=== PATIENT | female | born 2000 | race Caucasian/White ===

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

== ENCOUNTER 2021-01-29 21:59 | Emergency (ER) | payer OTHER ==
[2021-01-29] MEDS ORDERED: ZOFRAN4 MG PO (22:43)
== END 2021-01-29 22:46 | disposition home or self-care (01) ==
LOC: ED 21:59
DX: R11.0 Nausea (principal); Z79.899 Other long term (current) drug therapy

== ENCOUNTER 2021-03-19 10:34 | Emergency (ER) | payer OTHER ==
[~2021-03-19] VITALS: Wt 68.0 kg
[~2021-03-19 10:34] MED LIST changes: +ZOFRAN4 MG PO
[2021-03-19] MEDS ORDERED: ZYRTEC10 M2 PO (10:59)
[2021-03-19] MEDS ORDERED: FLONASE ALLERG9.9 ML NAS (11:08)
== END 2021-03-19 11:13 | disposition home or self-care (01) ==
LOC: ED 10:34
DX: J06.9 Acute upper respiratory infection, unspecified (principal); Z79.899 Other long term (current) drug therapy

== ENCOUNTER → 2021-07-20 | Outpatient (CLI) | payer OTHER ==
[~2021-07-20] MED LIST changes: +FLONASE ALLERG9.9 ML NAS; +ZYRTEC10 M2 PO
== END | disposition home or self-care (01) ==
LOC: US 14:49
PROVIDERS: ATTEND Nurse Practitioner Women's Health
DX: N31.9 Neuromuscular dysfunction of bladder, unspecified (principal)

== ENCOUNTER 2021-07-24 20:49 | Emergency (ER) | payer OTHER ==
[~2021-07-24] VITALS: Ht 162.5 cm; Wt 72.6 kg
== END 2021-07-24 22:37 | disposition left against medical advice (07) ==
LOC: ED 20:49
DX: R10.9 Unspecified abdominal pain (principal); R31.9 Hematuria, unspecified; Z53.21 Procedure and treatment not carried out due to patient leaving prior to being seen by health care provider

== ENCOUNTER → 2021-11-07 | Outpatient (CLI) | payer OTHER | END | disposition home or self-care (01) | LOC: RAD 09:08 | PROVIDERS: ATTEND Nurse Practitioner Family | DX: R05.9 Cough, unspecified (principal); R06.02 Shortness of breath; R06.2 Wheezing ==

== ENCOUNTER 2021-11-28 07:35 | Emergency (ER) | payer OTHER ==
[~2021-11-28] VITALS: Ht 160 cm; Wt 81.6 kg
[2021-11-28 08:12] LABS: BASO % 0.3 % (0.0-1.0); EOS # 0.1 10*3/uL (0.0-0.4); EOS % 1.5 % (1.0-4.0); HEMATOCRIT 43.2 % (37.0-47.0); LYMPH # 2.9 10*3/uL (1.3-4.4); LYMPH % 44.6 % (27.0-41.0); MEAN CORPUSCULAR HGB 28.3 pg (27.0-31.0); MEAN CORPUSCULAR HGB CONC 34.5 g/dl (33.0-37.0); MEAN PLATELET VOLUME 10.5 fl (9.6-12.3); MONO # 0.4 10*3/uL (0.1-1.0); MONO % 6.5 % (3.0-9.0); NEUT # 3.1 10*3/uL (2.3-7.9); NEUT % 46.9 % (47.0-73.0); PLATELET COUNT AUTOMATED 221 10*3/uL (130-400); RED BLOOD COUNT 5.27 10*6/uL (4.10-5.10); RED CELL DISTRI WIDTH 12.6 % (0-14.5); WHITE BLOOD COUNT 6.5 10*3/uL (4.8-10.8)
[2021-11-28 08:27] LABS: ACT PARTIAL THROMBO TIME 28.2 SECONDS (20.0-32.1)
[2021-11-28 08:28] LABS: ALKALINE PHOSPHATASE 104 U/L (45-117); BUN 17 mg/dl (7-24); CHLORIDE 108 mmol/L (98-107); CREATININE 0.81 mg/dL (0.55-1.02); POTASSIUM 3.8 mmol/L (3.5-5.1); SGOT/AST 27 IU/L (3-35); SGPT/ALT 44 U/L (12-78); SODIUM 140 mmol/L (136-145); TOTAL PROTEIN 8.1 gm/dL (6.4-8.2)
[2021-11-28] MEDS ORDERED: NAPROXEN250 MG PO (08:52)
[2021-11-28] MEDS ORDERED: TYLENOL325 M1 PO (08:52)
== END 2021-11-28 08:53 | disposition home or self-care (01) ==
LOC: ED 07:35
PROVIDERS: Emergency Medicine
DX: R07.89 Other chest pain (principal); Z79.899 Other long term (current) drug therapy

== ENCOUNTER 2022-01-23 07:01 | Emergency (ER) | payer OTHER ==
[~2022-01-23] VITALS: Wt 86.2 kg
[~2022-01-23 07:01] MED LIST changes: +NAPROXEN250 MG PO; +TYLENOL325 M1 PO
[2022-01-23 08:21] LABS: BASO % 0.3 % (0.0-1.0); EOS # 0.1 10*3/uL (0.0-0.4); EOS % 0.5 % (1.0-4.0); HEMATOCRIT 40.5 % (37.0-47.0); LYMPH # 3.5 10*3/uL (1.3-4.4); MEAN CELL VOLUME 82.5 fl (81.0-99.0); MEAN CORPUSCULAR HGB 28.7 pg (27.0-31.0); MEAN CORPUSCULAR HGB CONC 34.8 g/dl (33.0-37.0); MEAN PLATELET VOLUME 10.2 fl (9.6-12.3); MONO # 0.6 10*3/uL (0.1-1.0); MONO % 6.9 % (3.0-9.0); NEUT % 54.1 % (47.0-73.0); PLATELET COUNT AUTOMATED 226 10*3/uL (130-400); RED BLOOD COUNT 4.91 10*6/uL (4.10-5.10); RED CELL DISTRI WIDTH 12.7 % (0-14.5); WHITE BLOOD COUNT 9.3 10*3/uL (4.8-10.8)
[2022-01-23 08:37] LABS: ALKALINE PHOSPHATASE 83 U/L (45-117); BUN 14 mg/dl (7-24); CHLORIDE 108 mmol/L (98-107); CREATININE 0.73 mg/dL (0.55-1.02); LIPASE 83 U/L (73-393); POTASSIUM 4.2 mmol/L (3.5-5.1); SGOT/AST 16 IU/L (3-35); SGPT/ALT 34 U/L (12-78); SODIUM 138 mmol/L (136-145); TOTAL PROTEIN 7.7 gm/dL (6.4-8.2)
[2022-01-23 08:55] LABS: BILIRUBIN Negative (Negative); BLOOD Negative (Negative); CLARITY Clear (Clear); COLOR Yellow (Yellow); GLUCOSE Negative (Negative); KETONE Negative (Negative); LEUKO ESTERASE 1+ (Negative); NITRITE Negative (Negative); PH 5.5 (4.5-8.0); UROBILINOGEN 0.2 E.U./dl (0.0-1.0)
[2022-01-23 09:13] LABS: BACTERIA 3+
[2022-01-23] MEDS ORDERED: IBU800 M2 PO (13:59)
== END 2022-01-23 14:14 | disposition home or self-care (01) ==
LOC: ED 07:01
PROVIDERS: Emergency Medicine
DX: R10.31 Right lower quadrant pain (principal); R10.32 Left lower quadrant pain; R10.11 Right upper quadrant pain; R10.12 Left upper quadrant pain

== ENCOUNTER 2022-02-05 21:51 | Emergency (ER) | payer OTHER ==
[~2022-02-05] VITALS: Ht 160 cm; Wt 81.6 kg
[~2022-02-05 21:51] MED LIST changes: +IBU800 M2 PO
== END 2022-02-06 01:13 | disposition home or self-care (01) ==
LOC: ED 21:51
DX: R10.31 Right lower quadrant pain (principal); R10.2 Pelvic and perineal pain

== ENCOUNTER 2022-12-01 00:12 | Emergency (ER) | payer BC, MEDICAID ==
[~2022-12-01] VITALS: Ht 162.5 cm; Wt 92.1 kg
[2022-12-01 00:40] LABS: BASO % 0.1 % (0.0-1.0); EOS % 0.5 % (1.0-4.0); LYMPH # 1.7 10*3/uL (1.3-4.4); LYMPH % 19.8 % (27.0-41.0); MEAN CELL VOLUME 84.2 fl (81.0-99.0); MEAN CORPUSCULAR HGB CONC 34.4 g/dl (33.0-37.0); MEAN PLATELET VOLUME 10.4 fl (9.6-12.3); MONO # 0.5 10*3/uL (0.1-1.0); MONO % 6.2 % (3.0-9.0); NEUT # 6.1 10*3/uL (2.3-7.9); NEUT % 73.2 % (47.0-73.0); PLATELET COUNT AUTOMATED 188 10*3/uL (130-400); RED BLOOD COUNT 4.04 10*6/uL (4.10-5.10); RED CELL DISTRI WIDTH 12.1 % (0-14.5); WHITE BLOOD COUNT 8.3 10*3/uL (4.8-10.8)
[2022-12-01 01:08] LABS: ALKALINE PHOSPHATASE 116 U/L (46-116); BUN 7 mg/dl (9-23); CHLORIDE 106 mmol/L (98-107); POTASSIUM 3.7 mmol/L (3.4-5.1); SGPT/ALT 10 U/L (10-49); TOTAL PROTEIN 6.5 gm/dL (6.0-8.0)
[2022-12-01 01:15] LABS: BILIRUBIN Negative (Negative); BLOOD Negative (Negative); CLARITY Cloudy (Clear); COLOR Yellow (Yellow); GLUCOSE Negative (Negative); KETONE Negative (Negative); LEUKO ESTERASE Trace (Negative); NITRITE Negative (Negative); PH 6.5 (4.5-8.0); SPECIFIC GRAVITY 1.015 (1.001-1.030); UROBILINOGEN 0.2 E.U./dl (0.0-1.0)
[2022-12-01 01:49] LABS: BACTERIA 1+
== END 2022-12-01 02:36 | disposition home or self-care (01) ==
LOC: ED 00:12
PROVIDERS: Internal Medicine
DX: O98.512 Other viral diseases complicating pregnancy, second trimester (principal); U07.1 COVID-19; Z3A.27 27 weeks gestation of pregnancy; R79.82 Elevated C-reactive protein (CRP); E44.0 Moderate protein-calorie malnutrition; Z79.899 Other long term (current) drug therapy; Z68.34 Body mass index [BMI] 34.0-34.9, adult

== ENCOUNTER 2023-01-10 10:42 | Emergency (ER) | payer BC, MEDICAID ==
[~2023-01-10] VITALS: Ht 160 cm; Wt 99.8 kg
[2023-01-10 11:41] LABS: BILIRUBIN Negative (Negative); BLOOD Negative (Negative); CLARITY Turbid (Clear); COLOR Yellow (Yellow); GLUCOSE Negative (Negative); KETONE Negative (Negative); LEUKO ESTERASE 3+ (Negative); NITRITE Negative (Negative); PH 6.5 (4.5-8.0); SPECIFIC GRAVITY 1.015 (1.001-1.030); UROBILINOGEN 0.2 E.U./dl (0.0-1.0)
[2023-01-10 11:44] LABS: BASO % 0.2 % (0.0-1.0); EOS # 0.1 10*3/uL (0.0-0.4); EOS % 0.5 % (1.0-4.0); HEMATOCRIT 32.4 % (37.0-47.0); LYMPH # 1.8 10*3/uL (1.3-4.4); LYMPH % 18.7 % (27.0-41.0); MEAN CELL VOLUME 78.8 fl (81.0-99.0); MEAN CORPUSCULAR HGB 26.8 pg (27.0-31.0); MEAN PLATELET VOLUME 10.6 fl (9.6-12.3); MONO # 0.6 10*3/uL (0.1-1.0); NEUT # 7.3 10*3/uL (2.3-7.9); NEUT % 74.4 % (47.0-73.0); PLATELET COUNT AUTOMATED 212 10*3/uL (130-400); RED BLOOD COUNT 4.11 10*6/uL (4.10-5.10); RED CELL DISTRI WIDTH 12.2 % (0-14.5); WHITE BLOOD COUNT 9.7 10*3/uL (4.8-10.8)
[2023-01-10 12:04] LABS: BACTERIA 4+; WBC 31-40 wbc/hpf (0-5)
[2023-01-10 12:07] LABS: ALKALINE PHOSPHATASE 271 U/L (46-116); BUN 7 mg/dl (9-23); CHLORIDE 105 mmol/L (98-107); LIPASE 29 U/L (12-53); POTASSIUM 3.8 mmol/L (3.4-5.1); SGPT/ALT 8 U/L (10-49); TOTAL PROTEIN 6.4 gm/dL (6.0-8.0)
[2023-01-10] MEDS ORDERED: MACRODANTIN100 M1 PO (12:41)
[2023-01-10] MEDS ORDERED: ONDANSETRON4 MG SL (12:41)
== END 2023-01-10 13:03 | disposition home or self-care (01) ==
LOC: ED 10:42
PROVIDERS: Nurse Practitioner Family
DX: O23.93 Unspecified genitourinary tract infection in pregnancy, third trimester (principal); Z3A.33 33 weeks gestation of pregnancy

== ENCOUNTER 2023-03-16 20:20 | Emergency (ER) | payer BC, MEDICAID ==
[~2023-03-16] VITALS: Ht 160 cm; Wt 77.1 kg
[~2023-03-16 20:20] MED LIST changes: +MACRODANTIN100 M1 PO; +ONDANSETRON4 MG SL
[2023-03-16 21:17] LABS: BASO % 0.1 % (0.0-1.0); EOS % 0.3 % (1.0-4.0); HEMATOCRIT 36.1 % (37.0-47.0); LYMPH # 1.3 10*3/uL (1.3-4.4); LYMPH % 18.7 % (27.0-41.0); MEAN CELL VOLUME 77.1 fl (81.0-99.0); MEAN CORPUSCULAR HGB 24.6 pg (27.0-31.0); MEAN CORPUSCULAR HGB CONC 31.9 g/dl (33.0-37.0); MEAN PLATELET VOLUME 9.8 fl (9.6-12.3); MONO # 0.5 10*3/uL (0.1-1.0); MONO % 6.7 % (3.0-9.0); NEUT % 74.1 % (47.0-73.0); PLATELET COUNT AUTOMATED 214 10*3/uL (130-400); RED BLOOD COUNT 4.68 10*6/uL (4.10-5.10); RED CELL DISTRI WIDTH 16.6 % (0-14.5); WHITE BLOOD COUNT 6.8 10*3/uL (4.8-10.8)
[2023-03-16] MEDS ORDERED: CEPHALEXIN500 M1 PO (22:13)
== END 2023-03-16 22:47 | disposition home or self-care (01) ==
LOC: ED 20:20
PROVIDERS: Emergency Medicine
DX: O91.22 Nonpurulent mastitis associated with the puerperium (principal); J45.909 Unspecified asthma, uncomplicated; K21.9 Gastro-esophageal reflux disease without esophagitis; G43.909 Migraine, unspecified, not intractable, without status migrainosus; F32.A Depression, unspecified; Z88.8 Allergy status to other drugs, medicaments and biological substances; Z86.16 Personal history of COVID-19

== ENCOUNTER 2023-05-20 13:01 | Emergency (ER) | payer BC, MEDICAID ==
[~2023-05-20] VITALS: Ht 160 cm; Wt 81.6 kg
[~2023-05-20 13:01] MED LIST changes: +CEPHALEXIN500 M1 PO
[2023-05-20 14:35] LABS: BASO % 0.3 % (0.0-1.0); EOS # 0.1 10*3/uL (0.0-0.4); EOS % 1.7 % (1.0-4.0); HEMATOCRIT 39.2 % (37.0-47.0); LYMPH # 3.3 10*3/uL (1.3-4.4); LYMPH % 51.5 % (27.0-41.0); MEAN CELL VOLUME 78.4 fl (81.0-99.0); MEAN CORPUSCULAR HGB 26.4 pg (27.0-31.0); MEAN CORPUSCULAR HGB CONC 33.7 g/dl (33.0-37.0); MEAN PLATELET VOLUME 9.7 fl (9.6-12.3); MONO # 0.6 10*3/uL (0.1-1.0); MONO % 8.8 % (3.0-9.0); NEUT # 2.4 10*3/uL (2.3-7.9); NEUT % 37.5 % (47.0-73.0); PLATELET COUNT AUTOMATED 248 10*3/uL (130-400); WHITE BLOOD COUNT 6.4 10*3/uL (4.8-10.8)
[2023-05-20 14:43] LABS: BILIRUBIN Negative (Negative); BLOOD Negative (Negative); CLARITY Clear (Clear); COLOR Yellow (Yellow); GLUCOSE Negative (Negative); KETONE Trace (Negative); LEUKO ESTERASE Negative (Negative); NITRITE Negative (Negative); UROBILINOGEN 0.2 E.U./dl (0.0-1.0)
[2023-05-20 14:56] LABS: BACTERIA TRACE; RBC 0-2 rbc/hpf (0-2); WBC 0-2 wbc/hpf (0-5)
[2023-05-20 14:57] LABS: ALKALINE PHOSPHATASE 115 U/L (46-116); BUN 9 mg/dl (9-23); CHLORIDE 107 mmol/L (98-107); LIPASE 31 U/L (12-53); POTASSIUM 4.1 mmol/L (3.4-5.1); SGPT/ALT 43 U/L (10-49); TOTAL PROTEIN 7.2 gm/dL (6.0-8.0)
== END 2023-05-20 18:27 | disposition home or self-care (01) ==
LOC: ED 13:01
PROVIDERS: Physician Assistant Medical
DX: R07.89 Other chest pain (principal); J45.909 Unspecified asthma, uncomplicated; K21.9 Gastro-esophageal reflux disease without esophagitis; G43.909 Migraine, unspecified, not intractable, without status migrainosus; F32.A Depression, unspecified; Z88.8 Allergy status to other drugs, medicaments and biological substances

== ENCOUNTER 2023-07-14 12:30 | Emergency (ER) | payer MEDICAID ==
[~2023-07-14] VITALS: Ht 160 cm; Wt 83.9 kg
[2023-07-14 14:03] LABS: BASO % 0.2 % (0.0-1.0); EOS # 0.1 10*3/uL (0.0-0.4); EOS % 0.9 % (1.0-4.0); HEMATOCRIT 38.8 % (37.0-47.0); LYMPH # 2.4 10*3/uL (1.3-4.4); LYMPH % 44.1 % (27.0-41.0); MEAN CELL VOLUME 80.3 fl (81.0-99.0); MEAN CORPUSCULAR HGB 26.5 pg (27.0-31.0); MEAN PLATELET VOLUME 10.5 fl (9.6-12.3); MONO # 0.5 10*3/uL (0.1-1.0); MONO % 8.8 % (3.0-9.0); NEUT # 2.4 10*3/uL (2.3-7.9); NEUT % 45.1 % (47.0-73.0); PLATELET COUNT AUTOMATED 179 10*3/uL (130-400); RED BLOOD COUNT 4.83 10*6/uL (4.10-5.10); RED CELL DISTRI WIDTH 14.1 % (0-14.5); WHITE BLOOD COUNT 5.3 10*3/uL (4.8-10.8)
[2023-07-14 14:23] LABS: ALKALINE PHOSPHATASE 117 U/L (46-116); BUN 10 mg/dl (9-23); CHLORIDE 109 mmol/L (98-107); LIPASE 31 U/L (12-53); POTASSIUM 3.9 mmol/L (3.4-5.1); SGPT/ALT 40 U/L (10-49); TOTAL PROTEIN 6.9 gm/dL (6.0-8.0)
[2023-07-14 14:24] LABS: BETA-HCG, QUANT < 3.0 mIU/mL (3-10)
== END 2023-07-14 16:30 | disposition home or self-care (01) ==
LOC: ED 12:30
PROVIDERS: Emergency Medicine
DX: R10.11 Right upper quadrant pain (principal); R07.81 Pleurodynia

== ENCOUNTER 2023-07-22 19:06 | Emergency (ER) | payer MEDICAID ==
[~2023-07-22] VITALS: Ht 162.5 cm; Wt 96.2 kg
[2023-07-22 19:42] LABS: BASO % 0.3 % (0.0-1.0); EOS % 0.7 % (1.0-4.0); HEMATOCRIT 43.9 % (37.0-47.0); LYMPH # 1.8 10*3/uL (1.3-4.4); LYMPH % 29.1 % (27.0-41.0); MEAN CELL VOLUME 81.6 fl (81.0-99.0); MEAN CORPUSCULAR HGB 26.2 pg (27.0-31.0); MEAN CORPUSCULAR HGB CONC 32.1 g/dl (33.0-37.0); MEAN PLATELET VOLUME 10.6 fl (9.6-12.3); MONO # 0.4 10*3/uL (0.1-1.0); MONO % 6.9 % (3.0-9.0); NEUT # 3.9 10*3/uL (2.3-7.9); NEUT % 62.8 % (47.0-73.0); PLATELET COUNT AUTOMATED 186 10*3/uL (130-400); RED BLOOD COUNT 5.38 10*6/uL (4.10-5.10); RED CELL DISTRI WIDTH 14.1 % (0-14.5); WHITE BLOOD COUNT 6.1 10*3/uL (4.8-10.8)
[2023-07-22 20:02] LABS: ALKALINE PHOSPHATASE 114 U/L (46-116); BUN 7 mg/dl (9-23); CHLORIDE 105 mmol/L (98-107); LIPASE 33 U/L (12-53); SGPT/ALT 43 U/L (10-49); TOTAL PROTEIN 7.5 gm/dL (6.0-8.0)
== END 2023-07-23 04:56 | disposition left against medical advice (07) ==
LOC: ED 19:06
PROVIDERS: Internal Medicine
DX: R10.11 Right upper quadrant pain (principal); R07.81 Pleurodynia; R22.2 Localized swelling, mass and lump, trunk; J45.909 Unspecified asthma, uncomplicated; K21.9 Gastro-esophageal reflux disease without esophagitis; G43.909 Migraine, unspecified, not intractable, without status migrainosus; F32.A Depression, unspecified

== ENCOUNTER 2023-09-19 19:45 | Emergency (ER) | payer OTHER, MEDICAID ==
[~2023-09-19] VITALS: Ht 160 cm; Wt 81.6 kg
[2023-09-19 22:36] LABS: ALKALINE PHOSPHATASE 94 U/L (46-116); BUN 5 mg/dl (9-23); CHLORIDE 109 mmol/L (98-107); LIPASE 31 U/L (12-53); POTASSIUM 3.6 mmol/L (3.4-5.1); SGPT/ALT 31 U/L (5-49); TOTAL PROTEIN 7.1 gm/dL (6.0-8.0)
[2023-09-19 23:04] LABS: BASO % 0.5 % (0.0-1.0); EOS # 0.1 10*3/uL (0.0-0.4); EOS % 1.1 % (1.0-4.0); HEMATOCRIT 42.9 % (37.0-47.0); LYMPH # 3.1 10*3/uL (1.3-4.4); LYMPH % 50.2 % (27.0-41.0); MEAN CELL VOLUME 83.5 fl (81.0-99.0); MEAN CORPUSCULAR HGB 27.4 pg (27.0-31.0); MEAN CORPUSCULAR HGB CONC 32.9 g/dl (33.0-37.0); MEAN PLATELET VOLUME 10.9 fl (9.6-12.3); MONO # 0.4 10*3/uL (0.1-1.0); MONO % 6.2 % (3.0-9.0); NEUT # 2.6 10*3/uL (2.3-7.9); NEUT % 41.8 % (47.0-73.0); PLATELET COUNT AUTOMATED 158 10*3/uL (130-400); RED BLOOD COUNT 5.14 10*6/uL (4.10-5.10); RED CELL DISTRI WIDTH 13.9 % (0-14.5); WHITE BLOOD COUNT 6.3 10*3/uL (4.8-10.8)
[2023-09-19 23:15] LABS: ACT PARTIAL THROMBO TIME 21.5 SECONDS (20.0-32.1)
== END 2023-09-20 00:07 | disposition home or self-care (01) ==
LOC: ED 19:45
PROVIDERS: Internal Medicine
DX: R10.84 Generalized abdominal pain (principal); J45.909 Unspecified asthma, uncomplicated; K21.9 Gastro-esophageal reflux disease without esophagitis; G43.909 Migraine, unspecified, not intractable, without status migrainosus; F32.A Depression, unspecified

== ENCOUNTER 2023-09-22 21:39 | Emergency (ER) | payer MEDICAID ==
[~2023-09-22] VITALS: Ht 160 cm; Wt 81.6 kg
[2023-09-22] MEDS ORDERED: PREDNISONE50 MG PO (23:54)
== END 2023-09-23 00:04 | disposition home or self-care (01) ==
LOC: ED 21:39
DX: M94.0 Chondrocostal junction syndrome [Tietze] (principal)

== ENCOUNTER 2023-09-28 16:58 | Emergency (ER) | payer OTHER, MEDICAID ==
[~2023-09-28 16:58] MED LIST changes: +PREDNISONE50 MG PO
== END 2023-09-28 18:16 | disposition left against medical advice (07) ==
LOC: ED 16:58
DX: R07.81 Pleurodynia (principal); Z53.21 Procedure and treatment not carried out due to patient leaving prior to being seen by health care provider

== ENCOUNTER 2024-01-23 23:37 | Emergency (ER) | payer MEDICAID ==
[~2024-01-23] VITALS: Ht 162.5 cm; Wt 81.6 kg
[2024-01-23] MEDS ORDERED: Metoclopramide Hydrochloride 10 MG/2 ML AMP IM ONE (23:55)
[2024-01-23] MEDS ORDERED: diphenhydrAMINE hydrochloride 50 MG/ML VIAL IM ONE (23:55)
[2024-01-24 00:30] LABS: BASO % 0.2 % (0.0-1.0); EOS # 0.1 10*3/uL (0.0-0.4); EOS % 0.5 % (1.0-4.0); HEMATOCRIT 42.2 % (37.0-47.0); LYMPH # 3.1 10*3/uL (1.3-4.4); LYMPH % 31.9 % (27.0-41.0); MEAN CELL VOLUME 85.3 fl (81.0-99.0); MEAN CORPUSCULAR HGB 28.3 pg (27.0-31.0); MEAN CORPUSCULAR HGB CONC 33.2 g/dl (33.0-37.0); MEAN PLATELET VOLUME 10.2 fl (9.6-12.3); MONO # 0.7 10*3/uL (0.1-1.0); MONO % 6.7 % (3.0-9.0); NEUT # 5.9 10*3/uL (2.3-7.9); NEUT % 60.5 % (47.0-73.0); PLATELET COUNT AUTOMATED 231 10*3/uL (130-400); RED BLOOD COUNT 4.95 10*6/uL (4.10-5.10); RED CELL DISTRI WIDTH 13.4 % (0-14.5); WHITE BLOOD COUNT 9.7 10*3/uL (4.8-10.8)
[2024-01-24 00:33] LABS: BILIRUBIN Negative (Negative); BLOOD Negative (Negative); CLARITY Clear (Clear); COLOR Yellow (Yellow); GLUCOSE Negative (Negative); KETONE Negative (Negative); LEUKO ESTERASE Negative (Negative); NITRITE Negative (Negative); PH 5.5 (4.5-8.0); SPECIFIC GRAVITY >= 1.030 (1.001-1.030); UROBILINOGEN 0.2 E.U./dl (0.0-1.0)
[2024-01-24 00:43] LABS: RBC 0-2 rbc/hpf (0-2); WBC 0-2 wbc/hpf (0-5)
[2024-01-24 01:01] LABS: ALKALINE PHOSPHATASE 85 U/L (46-116); BUN 9 mg/dl (9-23); CHLORIDE 104 mmol/L (98-107); LIPASE 42 U/L (12-53); POTASSIUM 3.7 mmol/L (3.4-5.1); SGPT/ALT 43 U/L (5-49); TOTAL PROTEIN 7.2 gm/dL (6.0-8.0)
[2024-01-24] MEDS ORDERED: ONDANSETRON4 MG SL (01:08)
== END 2024-01-24 01:15 | disposition home or self-care (01) ==
LOC: ED 23:37
PROVIDERS: Internal Medicine
DX: O21.9 Vomiting of pregnancy, unspecified (principal); J45.909 Unspecified asthma, uncomplicated; K21.9 Gastro-esophageal reflux disease without esophagitis; G43.909 Migraine, unspecified, not intractable, without status migrainosus; F32.A Depression, unspecified; Z3A.08 8 weeks gestation of pregnancy

== ENCOUNTER 2024-11-07 16:50 | Emergency (ER) | payer MEDICAID ==
[~2024-11-07] VITALS: Ht 160 cm; Wt 90.7 kg
[2024-11-07 17:31] LABS: BASO % 0.3 % (0.0-1.0); EOS # 0.1 10*3/uL (0.0-0.4); EOS % 1.4 % (1.0-4.0); MEAN CELL VOLUME 79.9 fl (81.0-99.0); MEAN CORPUSCULAR HGB 25.3 pg (27.0-31.0); MEAN CORPUSCULAR HGB CONC 31.6 g/dl (33.0-37.0); MEAN PLATELET VOLUME 10.3 fl (9.6-12.3); MONO # 0.4 10*3/uL (0.1-1.0); MONO % 7.2 % (3.0-9.0); NEUT % 50.7 % (47.0-73.0); PLATELET COUNT AUTOMATED 223 10*3/uL (130-400); RED BLOOD COUNT 4.63 10*6/uL (4.10-5.10); RED CELL DISTRI WIDTH 16.5 % (0-14.5); WHITE BLOOD COUNT 5.8 10*3/uL (4.8-10.8)
[2024-11-07 17:39] LABS: BILIRUBIN Negative (Negative); BLOOD Negative (Negative); CLARITY Clear (Clear); COLOR Yellow (Yellow); GLUCOSE Negative (Negative); KETONE Negative (Negative); LEUKO ESTERASE 1+ (Negative); NITRITE Negative (Negative); PH 5.5 (4.5-8.0); SPECIFIC GRAVITY >= 1.030 (1.001-1.030); UROBILINOGEN 0.2 E.U./dl (0.0-1.0)
[2024-11-07 18:00] LABS: ALKALINE PHOSPHATASE 102 U/L (46-116); BUN 11 mg/dl (9-23); CHLORIDE 105 mmol/L (98-107); POTASSIUM 4.3 mmol/L (3.4-5.1); SGPT/ALT 79 U/L (5-49); TOTAL PROTEIN 7.1 gm/dL (6.0-8.0)
[2024-11-07 18:06] LABS: BACTERIA 2+; EPITHELIAL CELLS 21-30; WBC 16-20 wbc/hpf (0-5)
[2024-11-07] MEDS ORDERED: SODIUM CHLORIDE 0.9% 1,000 ML IV ONE (18:45)
[2024-11-07] MEDS ORDERED: IOHEXOL 300 MG/ML 100 ML VIAL IV ONE (19:00)
[2024-11-07] MEDS ORDERED: CEPHALEXIN 500 MG CAP PO ONE (22:00)
[2024-11-07] MEDS ORDERED: CEPHALEXIN500 M1 PO (22:00)
== END 2024-11-07 22:42 | disposition home or self-care (01) ==
LOC: ED 16:50
PROVIDERS: Nurse Practitioner
DX: N39.0 Urinary tract infection, site not specified (principal); J45.909 Unspecified asthma, uncomplicated; K21.9 Gastro-esophageal reflux disease without esophagitis; G43.909 Migraine, unspecified, not intractable, without status migrainosus; F32.A Depression, unspecified

== ENCOUNTER 2024-12-24 00:50 | Emergency (ER) | payer MEDICAID ==
[~2024-12-24] VITALS: Ht 160 cm; Wt 81.6 kg
[2024-12-24 01:19] LABS: BASO % 0.3 % (0.0-1.0); EOS # 0.1 10*3/uL (0.0-0.4); EOS % 0.8 % (1.0-4.0); HEMATOCRIT 39.1 % (37.0-47.0); MEAN CELL VOLUME 81.6 fl (81.0-99.0); MEAN CORPUSCULAR HGB 26.1 pg (27.0-31.0); MEAN PLATELET VOLUME 10.9 fl (9.6-12.3); MONO # 0.4 10*3/uL (0.1-1.0); MONO % 5.7 % (3.0-9.0); NEUT # 3.6 10*3/uL (2.3-7.9); NEUT % 49.8 % (47.0-73.0); PLATELET COUNT AUTOMATED 217 10*3/uL (130-400); RED BLOOD COUNT 4.79 10*6/uL (4.10-5.10); WHITE BLOOD COUNT 7.2 10*3/uL (4.8-10.8)
[2024-12-24 01:41] LABS: ALKALINE PHOSPHATASE 120 U/L (46-116); BUN 10 mg/dl (9-23); CHLORIDE 105 mmol/L (98-107); LIPASE 33 U/L (12-53); POTASSIUM 3.7 mmol/L (3.4-5.1); SGPT/ALT 42 U/L (5-49); TOTAL PROTEIN 7.5 gm/dL (6.0-8.0)
[2024-12-24] MEDS ORDERED: Ketorolac Tromethamine 60 MG/2 ML VIAL IM ONE (02:05)
== END 2024-12-24 02:28 | disposition home or self-care (01) ==
LOC: ED 00:50
PROVIDERS: Internal Medicine
DX: K82.8 Other specified diseases of gallbladder (principal)

== ENCOUNTER 2025-01-06 10:56 | Emergency (ER) | payer MEDICAID ==
[~2025-01-06] VITALS: Ht 160 cm; Wt 81.6 kg
[2025-01-06] MEDS ORDERED: MORPHINE Sulfate 2 MG/ML SYR IV ONE (11:15)
[2025-01-06] MEDS ORDERED: SODIUM CHLORIDE 0.9% 1,000 ML IV ONE (11:15)
[2025-01-06] MEDS ORDERED: Ondansetron Hydrochloride 4 MG/2 ML VIAL IV ONE (11:15)
[2025-01-06 12:01] LABS: BASO % 0.1 % (0.0-1.0); EOS % 0.4 % (1.0-4.0); MEAN CELL VOLUME 82.1 fl (81.0-99.0); MEAN CORPUSCULAR HGB 26.6 pg (27.0-31.0); MEAN CORPUSCULAR HGB CONC 32.4 g/dl (33.0-37.0); MONO # 0.5 10*3/uL (0.1-1.0); MONO % 7.2 % (3.0-9.0); NEUT # 4.4 10*3/uL (2.3-7.9); NEUT % 65.7 % (47.0-73.0); PLATELET COUNT AUTOMATED 201 10*3/uL (130-400); RED BLOOD COUNT 4.63 10*6/uL (4.10-5.10); RED CELL DISTRI WIDTH 13.9 % (0-14.5); WHITE BLOOD COUNT 6.7 10*3/uL (4.8-10.8)
[2025-01-06 12:22] LABS: ALKALINE PHOSPHATASE 138 U/L (46-116); BUN 12 mg/dl (9-23); CHLORIDE 105 mmol/L (98-107); LIPASE 29 U/L (12-53); SGPT/ALT 109 U/L (5-49); TOTAL PROTEIN 6.9 gm/dL (6.0-8.0)
[2025-01-06 13:13] LABS: BILIRUBIN Negative (Negative); BLOOD Negative (Negative); CLARITY Clear (Clear); COLOR Yellow (Yellow); GLUCOSE Negative (Negative); KETONE Negative (Negative); LEUKO ESTERASE Negative (Negative); NITRITE Negative (Negative); PH 5.5 (4.5-8.0); UROBILINOGEN 0.2 E.U./dl (0.0-1.0)
[2025-01-06 13:27] LABS: EPITHELIAL CELLS 0-2; RBC 0-2 rbc/hpf (0-2)
[2025-01-06] MEDS ORDERED: Ondansetron4 MG PO (13:55)
== END 2025-01-06 14:43 | disposition home or self-care (01) ==
LOC: ED 10:56
PROVIDERS: Physician Assistant Medical
DX: K82.8 Other specified diseases of gallbladder (principal); R11.2 Nausea with vomiting, unspecified

== ENCOUNTER 2025-02-02 03:27 | Inpatient (IN) | payer MEDICAID ==
[2025-02-02] VITALS (10 sets, daily range): BP systolic 124–143; BP diastolic 66–92
[~2025-02-02] VITALS: Ht 160 cm; Wt 94.8 kg
[~2025-02-02 03:27] MED LIST changes: +Ondansetron4 MG PO
[2025-02-02] MEDS ORDERED: Ondansetron Hydrochloride 4 MG/2 ML VIAL IV ONE ×2 (03:40→13:37)
[2025-02-02] MEDS ORDERED: HYDROmorphONE Hydrochloride 0.5 MG/0.5 ML SYRINGE IV ONE (03:40)
[2025-02-02 03:57] LABS: BASO % 0.2 % (0.0-1.0); EOS % 0.2 % (1.0-4.0); HEMATOCRIT 42.4 % (37.0-47.0); MEAN CELL VOLUME 82.2 fl (81.0-99.0); MEAN CORPUSCULAR HGB 26.7 pg (27.0-31.0); MEAN CORPUSCULAR HGB CONC 32.5 g/dl (33.0-37.0); MEAN PLATELET VOLUME 10.5 fl (9.6-12.3); MONO # 0.4 10*3/uL (0.1-1.0); MONO % 3.8 % (3.0-9.0); NEUT # 9.1 10*3/uL (2.3-7.9); NEUT % 81.3 % (47.0-73.0); PLATELET COUNT AUTOMATED 223 10*3/uL (130-400); RED BLOOD COUNT 5.16 10*6/uL (4.10-5.10); RED CELL DISTRI WIDTH 13.9 % (0-14.5); WHITE BLOOD COUNT 11.2 10*3/uL (4.8-10.8)
[2025-02-02 04:21] LABS: ALKALINE PHOSPHATASE 153 U/L (46-116); BUN 11 mg/dl (9-23); CHLORIDE 102 mmol/L (98-107); LIPASE 33 U/L (12-53); SGPT/ALT 146 U/L (5-49); TOTAL PROTEIN 7.6 gm/dL (6.0-8.0)
[2025-02-02] MEDS ORDERED: Piperacillin Sodium/Tazobact 50 ML IV ONE (06:10)
[2025-02-02] MEDS ORDERED: SODIUM CHLORIDE 0.9% 1,000 ML IV ONE (06:15)
[2025-02-02] MEDS ORDERED: ACETAMINOPHEN 325 MG TAB PO PRN (08:15)
[2025-02-02] MEDS ORDERED: BISACODYL 5 MG TAB PO PRN (08:15)
[2025-02-02] MEDS ORDERED: Acetaminophen/Hydrocodone 5 MG/325 MG TABLET PO PRN (08:15)
[2025-02-02] MEDS ORDERED: MORPHINE Sulfate 2 MG/ML SYR IV PRN (08:15)
[2025-02-02] MEDS ORDERED: Ondansetron Hydrochloride 4 MG/2 ML VIAL IV PRN (08:15)
[2025-02-02] MEDS ORDERED: SODIUM CHLORIDE 0.9% 1,000 ML IV SCH (09:35)
[2025-02-02] MEDS ORDERED: BUPivacaine 0.5% 30 ML IV ONE (11:59)
[2025-02-02] MEDS ORDERED: Piperacillin Sodium/Tazobact 50 ML IV SCH (12:00)
[2025-02-02] MEDS ORDERED: Lactated Ringer's Solution 1,000 ML IV ONE (12:24)
[2025-02-02] MEDS ORDERED: HYDROmorphONE Hydrochloride 0.5 MG/0.5 ML SYRINGE IV SCH (13:20)
[2025-02-02] MEDS ORDERED: Lidocaine Hydrochloride 2% 5 ML SDV IM ONE (13:32)
[2025-02-02] MEDS ORDERED: ROCURONIUM BROMIDE 50 MG/5 ML SYRINGE IV ONE (13:32)
[2025-02-02] MEDS ORDERED: Midazolam Hydrochloride 2 MG/2 ML VIAL IV ONE (13:32)
[2025-02-02] MEDS ORDERED: fentaNYL CITRATE 100 MCG/2 ML VIAL IV ONE (13:32)
[2025-02-02] MEDS ORDERED: PROPOFOL 200 MG/20 ML VIAL IV ONE (13:37)
[2025-02-02] MEDS ORDERED: Succinylcholine Chloride 200 MG/10 ML SYRINGE IV ONE (13:37)
[2025-02-02] MEDS ORDERED: SUGAMMADEX SODIUM 200 MG/2 ML VIAL IV ONE (13:37)
[2025-02-02] MEDS ORDERED: SEVOFLURANE 250 ML BOT INH ONE (13:37)
[2025-02-02] MEDS ORDERED: Dexamethasone Sodium Phospha 4 MG/ML VIAL IV ONE (13:37)
[2025-02-02] MEDS ORDERED: HYDROmorphONE Hydrochloride 0.5 MG/0.5 ML SYRINGE ONE (13:40)
[2025-02-02] MEDS ORDERED: HYDROCODONE-AC1 EAC1 PO (15:16)
[2025-02-02] MEDS ORDERED: COLACE100 MG PO (15:16)
== END 2025-02-02 21:06 | disposition home or self-care (01) | DRG 263 ==
LOC: ED 03:27 → EDHOLD 06:45 → 4E 08:48
PROVIDERS: Internal Medicine; ADMIT Internal Medicine; ATTEND Internal Medicine
PROC: 0FT44ZZ Resection of Gallbladder, Percutaneous Endoscopic Approach (ICD-10-PCS; principal; 2025-02-01)
DX: K80.10 Calculus of gallbladder with chronic cholecystitis without obstruction (principal); R73.9 Hyperglycemia, unspecified; D72.828 Other elevated white blood cell count

== ENCOUNTER 2025-10-12 16:11 | Emergency (ER) | payer OTHER, MEDICAID ==
[~2025-10-12 16:11] MED LIST changes: +COLACE100 MG PO; +HYDROCODONE-AC1 EAC1 PO
[2025-10-12] MEDS ORDERED: ACETAMINOPHEN 325 MG TAB PO ONE (17:10)
== END 2025-10-12 18:49 | disposition home or self-care (01) ==
LOC: ED 16:11
DX: O9A.211 Injury, poisoning and certain other consequences of external causes complicating pregnancy, first trimester (principal); S16.1XXA Strain of muscle, fascia and tendon at neck level, initial encounter; O99.341 Other mental disorders complicating pregnancy, first trimester; O99.511 Diseases of the respiratory system complicating pregnancy, first trimester; J45.909 Unspecified asthma, uncomplicated; G43.909 Migraine, unspecified, not intractable, without status migrainosus; K21.9 Gastro-esophageal reflux disease without esophagitis; Z3A.11 11 weeks gestation of pregnancy; Z90.49 Acquired absence of other specified parts of digestive tract; V87.7XXA Person injured in collision between other specified motor vehicles (traffic), initial encounter; Y93.89 Activity, other specified; Y92.89 Other specified places as the place of occurrence of the external cause; Y99.8 Other external cause status